=== PATIENT | female | born 2005 | race Caucasian/White ===

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

== ENCOUNTER 2024-01-27 11:44 | Emergency (ER) | payer MEDICAID, OTHER ==
[~2024-01-27] VITALS: Ht 175.3 cm; Wt 87.5 kg
[2024-01-27 12:44] LABS: BASOPHILS % (AUTO) 0.4 % (0-1); EOSINOPHILS # (AUTO) 0.2 X10'3 (0-0.9); EOSINOPHILS % (AUTO) 1.3 % (0-6); HEMATOCRIT 37.9 % (35.0-45.0); HEMOGLOBIN 12.4 g/dl (12.0-16.0); LYMPHOCYTES % (AUTO) 17.2 % (21-51); MEAN CORPUSCULAR HEMOGLOBIN 28.7 PG (27.0-31.0); MEAN CORPUSCULAR HGB CONC 32.8 g/dL (33.0-36.5); MEAN CORPUSCULAR VOLUME 87.5 FL (78-98); MEAN PLATELET VOLUME 8.8 FL (7.4-10.4); MONOCYTES # (AUTO) 0.9 X10'3 (0-0.9); MONOCYTES % (AUTO) 7.8 % (2-12); NEUTROPHILS # (AUTO) 8.5 X10'3 (1.8-7.7); NEUTROPHILS % (AUTO) 73.3 % (42-75); PLATELET COUNT 239 X10'3 (140-440); RED BLOOD COUNT 4.33 X10'6 (4.20-5.60); RED CELL DISTRIBUTION WIDTH 14.1 % (11.5-14.5); WHITE BLOOD COUNT 11.6 X10'3 (4.5-11.0)
[2024-01-27 13:08] LABS: ALBUMIN 3.9 G/DL (3.4-5.0); ANION GAP 12 (8-16); BLOOD UREA NITROGEN 7 MG/DL (7-18); CALCIUM 8.7 MG/DL (8.5-10.1); CHLORIDE 106 MMOL/L (99-107); CREATININE 0.54 MG/DL (0.40-0.90); GLUCOSE 102 MG/DL (70-104); SALICYLATE 1.4 MG/DL (4.0-20.0); SODIUM 140 MMOL/L (135-145); THYROID STIMULATING HORMONE 1.35 ulU/ml (0.34-4.50); TOTAL CARBON DIOXIDE 21.8 MMOL/L (24-32); eCRCL 175 ML/MIN; eGFR > 90 ML/MIN
[2024-01-27 13:20] LABS: ACETAMINOPHEN 59.6 UG/ML (10-30); ETHANOL < 10 MG/DL (<10)
[2024-01-27 14:03] LABS: APTT 28 SECONDS (22-32); PROTHROMBIN TIME 10.9 SECONDS (9.0-12.0)
[2024-01-27 14:11] LABS: BILIRUBIN,URINE NEGATIVE (Neg); CLARITY,URINE SLIGHTLY CLOUDY (Clear); COLOR,URINE YELLOW (Yellow); GLUCOSE, URINE NEGATIVE (Neg); KETONES,URINE NEGATIVE (Neg); LEUKOCYTE ESTERASE ,URINE NEGATIVE (Neg); NITRITES, URINE NEGATIVE (Neg); OCCULT BLOOD,URINE NEGATIVE (Neg); PROTEIN,URINE NEGATIVE (Neg); URINE HCG POSITIVE (NEG); UROBILINOGEN,URINE 0.2 E.U/dL (0.2-1.0)
[2024-01-27 14:13] LABS: UA COLLECTION TYPE CLN CATCH MIDSTREAM
[2024-01-27 14:17] LABS: BETA HCG,QUANTITATIVE 6807 mIU/ml
[2024-01-27 14:20] LABS: WBC,URINE 0-4 /HPF (0-4)
[2024-01-27 14:23] LABS: MUCUS STRANDS FEW /LPF (Neg); RBC,URINE 0-2 /HPF (0-2); SQUAMOUS EPITHELIAL CELL,UR MANY /LPF (FEW)
[2024-01-27 14:25] LABS: TRANSITIONAL EPI CELLS,URINE FEW /HPF
[2024-01-27 14:27] LABS: BACTERIA,URINE 2+ /HPF (Neg)
[2024-01-27 14:57] LABS: URINE AMPHETAMINE SCREEN NEGATIVE (Neg); URINE BARBITUATE SCREEN NEGATIVE (Neg); URINE BENZODIAZEPINES SCREEN NEGATIVE (Neg); URINE CANNABINOID SCREEN POSITIVE (Neg); URINE COCAINE SCREEN NEGATIVE (Neg); URINE METHADONE SCREEN NEGATIVE (Neg); URINE PHENCYCLIDINE SCREEN NEGATIVE (Neg)
[2024-01-27 16:00] LABS: ACETAMINOPHEN 71.3 UG/ML (10-30)
[2024-01-27 18:14] LABS: ALANINE AMINOTRANSFERASE 17 U/L (12-78); ALBUMIN 3.7 G/DL (3.4-5.0); ALKALINE PHOSPHATASE 55 IU/L (20-180); ASPARTATE AMINO TRANSFERASE 9 U/L (10-37); BILIRUBIN,DIRECT 0.1 MG/DL (0-0.3); BILIRUBIN,TOTAL 0.4 MG/DL (0.1-1.0); TOTAL PROTEIN 7.3 G/DL (6.4-8.2)
[2024-01-28 06:28] VITALS: BP 111/73; PULSE 98; O2SAT 98
[2024-01-28 09:04] VITALS: RESP 16
[2024-01-28 12:41] VITALS: TEMP 97.8
== END 2024-01-28 12:44 | disposition still patient (30) ==
LOC: ER 11:44
DX: O9A.211 Injury, poisoning and certain other consequences of external causes complicating pregnancy, first trimester (principal); Z20.822 Contact with and (suspected) exposure to COVID-19; T39.1X2A Poisoning by 4-Aminophenol derivatives, intentional self-harm, initial encounter; O26.891 Other specified pregnancy related conditions, first trimester; R45.851 Suicidal ideations; Z3A.01 Less than 8 weeks gestation of pregnancy; Y92.89 Other specified places as the place of occurrence of the external cause
CPT/HCPCS: 36415; 80048; 80076; 80305; 80320; 80329; 81001; 81025; 83735; 84443; 84702; 85025; 85610; 85730; 87811; 93005; 99285

== ENCOUNTER 2024-07-27 16:28 | Emergency (ER) | payer MEDICAID ==
[~2024-07-27] VITALS: Ht 175.3 cm; Wt 82.2 kg
[2024-07-27 16:41] VITALS: BP 118/83; PULSE 78; RESP 18; O2SAT 98
[2024-07-27] MEDS ORDERED: MELO-102 PO (19:13)
[2024-07-27 19:23] VITALS: TEMP 98
== END 2024-07-27 19:24 | disposition home or self-care (01) ==
LOC: ER 16:29
DX: M25.562 Pain in left knee (principal); Z88.2 Allergy status to sulfonamides
CPT/HCPCS: 73564; 99283

== ENCOUNTER 2025-04-29 02:36 | Emergency (ER) | payer MEDICAID ==
[~2025-04-29] VITALS: Ht 175.3 cm; Wt 92.0 kg
[~2025-04-29 02:36] MED LIST: MELO-102 PO
--- NOTE | 2025-04-29 03:07 | Physician Documentation ---
History of Present Illness ~ Stated Complaint: BACK PAIN Time Seen by MD: 03:02 HPI This is a 19-year-old female with a known history of PCOS who presents for evaluation of recrudescence of low back pain. She had experienced similar symptoms several years ago, the pain was worse when she was lying flat. She states that several days ago she had developed symptoms again, without any obvious trigger, trauma provocation. The pain is markedly worse when she is lying flat. She is no longer able to sit up straight and has to roll around in a swooning motion in order to get up from lying position. She did not attempt to treat her symptoms. Denies any trauma. Denies urinary or fecal incontinence, denies saddle paresthesias. Denies any fever, dysuria hematuria. LMP: April 04. She smokes nicotine. Denies drug use or alcohol use. Medication Reconciliation Allergies: Coded Allergies: Sulfa (Sulfonamide Antibiotics) (Verified Allergy, Unknown, 07/27/24) Scheduled Meloxicam (Meloxicam), 1 TAB PO DAILY Past Medical History Past Medical History: No Pertinent History Past Surgical History: no surgical history Drug Use: none Lives In: Home Review of Systems ROS 10 point review of systems was performed and unless noted above in HPI is negative for acute process/complaint. Physical Exam Physical Exam Physical Exam Physical examination: GENERAL: Awake, alert, oriented, GCS 15, no apparent distress, non-toxic appearing, answers questions, follows commands appropriately. Examined in triage HEENT: Atraumatic, normocephalic, pupils equal, extraocular muscles intact Active gross movements, sclerae anicteric, mucus membranes moist, no stridor. NECK: Midline, no JVD CARDIOVASCULAR: Good skin perfusion without evidence of pallor, mottling. PULMONARY: Nonlabored, symmetric chest rise, no audible wheezing, no accessory muscle use, no respiratory distress, speaking in full sentences. GASTROINTESTINAL: Not distended. NEUROLOGIC: Lucid with normal mental status. Normal facial symmetry. Moves all extremities symmetrically and with purpose. No truncal ataxia. Speech is fluid without evidence of dysarthria or aphasia, no focal deficits appreciated. EXTREMITIES: Acute deformities Skin: warm, dry PSYCHIATRIC: Normal affect, normal insight, normal concentration. Focused exam: [] Progress Results/Orders Results/Orders Orders - DALLAS JAIME DO Ct Lumbar Spine (04/29/25 04:15) Completed Orders - DALLAS JAIME DO Hcg, Ur Ql (04/29/25 03:02) Urinalysis, Cult If Indicated (04/29/25 03:02) Drug Screen, Urine (04/29/25 03:02) Ct Lumbar Spine (04/29/25 04:15) Ketorolac Trometh 30mg/Ml Vial (Toradol (04/29/25 03:05) Orphenadrine Citrate Inj. (Norflex Inj.) (04/29/25 03:05) Medications Received in ER Medications (Trade) Dose Ordered Sig/Dede Route PRN Reason Start Time Stop Time Status Last Admin Dose Admin (Toradol inj. 30mg/ml) 30 mg ONCE ONCE IM 04/29/25 03:05 04/29/25 03:07 DC 04/29/25 03:47 30 MG (Norflex inj.) 60 mg ONCE ONCE IM 04/29/25 03:05 04/29/25 03:06 DC 04/29/25 03:48 60 MG Vital Signs 04/29/25 04/29/25 03:06 03:47 Temp 97.7 Pulse 83 Resp 17 16 B/P (MAP) 120/81 Pulse Ox 98 Laboratory Tests Test 04/29/25 04:01 Urine Specimen Description Cln catch midstream Urine Color Yellow Urine Clarity Clear Urine pH 5.5 Urine Specific Atkins >=1.030 Urine Protein Negative Urine Glucose (UA) Negative Urine Ketones Negative Urine Occult Blood Negative Urine Nitrite Negative Urine Bilirubin Negative Urine Urobilinogen 0.2 Urine Leukocyte Esterase Negative Urine Culture Indicated Not ind Volume Urine Centrifuged 10 ml Urine HCG, Qualitative Negative Urine Comment Urine Opiates Screen Negative Urine Methadone Screen Negative Urine Fentanyl Screen Negative Urine Barbiturates Screen Negative Urine Phencyclidine Screen Negative Urine Amphetamines Screen Negative Urine Benzodiazepines Screen Negative Urine Cocaine Screen Negative Urine Cannabinoids Screen Positive Drug Screen Comment Medical Decision Making Findings Facility Status: ED Holds, E process The plan was discussed with the patient, who demonstrates clear understanding of the plan and is in agreement with the plan unless otherwise noted in the chart. All questions have been answered, all concerns were addressed unless otherwise documented. I was available throughout their ED stay for frequent reassessment and questions. Differential Diagnoses (considered and possible or likely): [Muscle sprain, lumbago, sciatica, less likely lumbar spine fracture or subluxation, clinically no evidence of cauda equina and conus medullaris] ??Differential Diagnoses (considered and unlikely, not requiring evaluation currently): [See above] MDM Data Please see [facility] for the following: Independent Historians and external Records Review. Historian: [Patient] Independent Historians: ?[Record review] Medication Management: [Reviewed medication list] Social History and determinants: [Reviewed] Please see the body of the note for the following: Any independent interpretations of ECG, imaging studies. All vitals signs/haemodynamics, ordered tests were independently reviewed and interpreted by myself. Nursing triage complaint and vitals reviewed, additional nursing notes were reviewed as available and I agree unless otherwise noted or documented in contradiction in the chart Vital Signs: Independently reviewed Labs: Independently interpreted Imaging: Independently interpreted Old Medical Records: Independently reviewed, see [facility] for relevant summary and information Pulse Oximetry: [100%] interpreted as [normal on room air] by me Additionally notably showing: [Hemodynamically stable. She is not . UA nondiagnostic for UTI. CT shows no acute pathology, no fracture or subluxation.] Tests considered but not ordered include: [Does not appear that she needs a hematologic workup.] Social Determinants of Health Impact: Patient was evaluated in [facility], or [facility] [place] to healthcare due to below par ratio of patient to medical providers. [] Comorbid Conditions Impacting Present Evaluation and Care/Treatment: [Prior hi story of back pain] Management Discussions with other Healthcare Providers: [None] Treatment and Disposition Medication Management (Given or considered): [Pain management]. See EMR for details Consideration for Hospitalization/Escalation/Deescalation of Care: Admission for observation has been considered, [however the patient is able to tolerate p.o., their symptoms are controlled, they are able to rely on oral medications, and their chief complaint/diagnosis can be managed on outpatient basis.] ?ED Course:?[No clinical deterioration] ?Shared decision making:?[Patient is hemodynamically stable for discharge home with follow with their primary care provider. [ She was advised to return immediately if she develops urinary incontinence, fecal incontinence, saddle paresthesias, weakness in lower extremities or change in sensation in lower extremities] Specific and cautious return precautions provided and discussed with full understanding. Any incidental findings were also discussed and follow up recommendations given. [] All questions answered. Patient/family were able to verbalize back return precautions. Patient/family agree to plan. Copies of imaging and laboratory studies were provided.] Code status:?FULL Please see the full Electronic Medical Record for full details of nursing documentation, medications list, other records of complete past medical history and conditions, vital signs, laboratory studies, and any radiologic study interpretations by radiologists. Portions of this note were completed using [employer] dictation software and as a result there may exist minor errors in spelling. I have reviewed elements of past family and social history and agree as included in note. Departure Disposition: HOME / SELF CARE / HOMELESS Impression: Primary Impression: Acute back pain Condition: Improved Discharge Instructions: Acute Back Pain, Adult Additional Instructions: Return to emergency department immediately if you develop loss of bladder control, loss of bowel control, unable to urinate, developed numbness in your genital area, numbness or weakness in lower extremities. Referrals: NO PRIMARY CARE PROVIDER (PCP) Prescriptions Cyclobenzaprine HCl (Cyclobenzaprine HCl) 5 Mg Tablet 1 TAB PO TID PRN PRN for muscle spasms for 10 Days, #30 TAB 0 Refills Prov: DALLAS JAIME DO 04/29/25 Naproxen (Naproxen) 375 Mg Tablet 1 TAB PO Q12H for pain for 10 Days, #20 TAB 0 Refills with food Prov: DALLAS JAIME DO 04/29/25 Education Educated: Patient Educated regarding: diagnosis, treatment, prognosis, need for follow up Signature Scribe Signature: No scribe Attestation: Date: Apr 29, 2025 Time: 03:07 This note accurately reflects clinical decisions, work performed by myself, DO YENI Daily NICHOLAS M DO Apr 29, 2025 03:07
[2025-04-29] MEDS: ketorolac trometh 30MG/ML vial 30 MG/ML VIAL IM ONE (03:47)
[2025-04-29] MEDS: orphenadrine citrate 60mg/2ml inj. IM ONE (03:48)
[2025-04-29 04:07] LABS: URINE HCG NEGATIVE (NEG)
[2025-04-29 04:15] LABS: URINE AMPHETAMINE SCREEN NEGATIVE (Neg); URINE BARBITUATE SCREEN NEGATIVE (Neg); URINE BENZODIAZEPINES SCREEN NEGATIVE (Neg); URINE CANNABINOID SCREEN POSITIVE (Neg); URINE COCAINE SCREEN NEGATIVE (Neg); URINE METHADONE SCREEN NEGATIVE (Neg); URINE OPIATE SCREEN NEGATIVE (Neg); URINE PHENCYCLIDINE SCREEN NEGATIVE (Neg)
[2025-04-29 04:23] LABS: LEUKOCYTE ESTERASE ,URINE NEGATIVE (Neg); NITRITES, URINE NEGATIVE (Neg); OCCULT BLOOD,URINE NEGATIVE (Neg)
[2025-04-29 04:26] LABS: UA COLLECTION TYPE CLN CATCH MIDSTREAM
--- NOTE | 2025-04-29 04:59 | RADIOLOGY REPORT ---
EXAM: CT CT LUMBAR SPINE HISTORY: New onset severe back pain COMPARISON: None CTDIvol 29.01 mGy, DLP 95.16 mGy*cm. TECHNIQUE: Multiple axial CT images of the spine were obtained using bone algorithm. Axial and coron al reformatting was done. Bone and soft tissue windows were reviewed. FINDINGS: No CT evidence of definite acute fracture, spinal dislocation, or significant appearing acute subluxa tion is seen. The visualized paraspinal soft tissues are grossly unremarkable. IMPRESSION: 1. No definite CT evidence of acute fracture or dislocation of the bony lumbar spine.
[2025-04-29] MEDS ORDERED: NAPR-1166 PO (05:06)
[2025-04-29] MEDS ORDERED: CYCL-920 PO (05:06)
[2025-04-29 05:09] VITALS: BP 114/77; PULSE 78; RESP 16; TEMP 97.4; O2SAT 99
== END 2025-04-29 05:17 | disposition home or self-care (01) ==
LOC: ER 02:37
DX: M54.50 Low back pain, unspecified (principal); Z88.2 Allergy status to sulfonamides; Z79.899 Other long term (current) drug therapy
CPT/HCPCS: 72131; 80305; 81003; 81025; 96372; 99285; J1885; J2360